=== PATIENT | female | born 1940 | race Caucasian/White ===

== ENCOUNTER 2020-06-21 09:46 | Emergency (ER) | payer MEDICARE, BC, SELFPAY ==
--- NOTE | 2020-06-21 | XR_ITS ---
EXAMINATION: AP SUPINE CHEST AND PELVIS AND LEFT HIP. CLINICAL INFORMATION: Fall COMPARISON: Chest x-ray of July 07, 2015 TECHNIQUE: AP supine chest x-ray and AP pelvis with 2 views left hip. FINDINGS: Chest: Scarring is noted about the right apex. No acute parenchymal disease, pneumothorax, or pleural effusion is appreciated. Heart normal size. No evidence of pulmonary edema. Calcific tendinitis of the left shoulder is noted. There is degenerative change with appearance of previous fracture distal right clavicle. Aortic artery calcifications present. Pelvis and left hip: AP film of the pelvis does not demonstrate any evidence of acute fracture or diastases. There is some degenerative narrowing seen involving the right hip joint axially and inferiorly. No fracture or dislocation of the left hip is identified. Prominent vascular calcifications are seen. AP and crosstable lateral views of the left hip do not demonstrate any evidence of acute fracture or dislocation. IMPRESSION: No acute parenchymal disease within the chest. No evidence of acute fracture or diastases of the pelvis. No evidence of acute fracture or dislocation of the left hip.
[2020-06-21 08:17] VITALS: BP 153/70; PULSE 56; RESP 14; TEMP 36.6; O2SAT 99; BMI 23.4
--- NOTE | 2020-06-21 08:18 | CT_ITS ---
EXAMINATION: CT HEAD AND CT CERVICAL SPINE. EXAMINATION: CT HEAD/BRAIN WITHOUT CONTRAST CLINICAL INFORMATION: Fall COMPARISON: MRI of June 28, [address] of October 20, 2005 TECHNIQUE: CT scanning from base of skull to vertex performed without IV contrast administration. DLP: 599.56 mGy-cm. FINDINGS: The ventricles, sulci, and cisterns appear age-related prominent. No abnormal extra-axial fluid collection or intracranial hemorrhage is seen. No significant mass effect or midline structure shift is evident. 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 IMPRESSION: No acute intracranial abnormality. EXAMINATION: CT OF THE CERVICAL SPINE CLINICAL INFORMATION: Fall COMPARISON: None. TECHNIQUE: Thin helical images with sagittal and coronal reformats. DOSE: DLP 264.22 mGy-cm. FINDINGS: There is no abnormal prevertebral soft tissue swelling present. Paraspinal muscle fat planes are maintained. The vertebral alignment is normal. No acute fractures identified. There is significant disc space narrowing noted at the C5-C6 and C6-C7 levels. Degenerative marginal spurring is seen at all levels most prominent at C4-C7. Posterior disc space calcification present. Facet arthropathy is seen bilaterally C2-C5 there is bilateral neural foraminal narrowing at the C5-C6 level related to spurring of the joints of [place] as well as at the C6-C7 level on the right. Pterygoid plates intact. Visualized paranasal sinuses and mastoid air cells unremarkable. Bilateral thyroid calcifications are seen as well as a 7 mm left thyroid lobe nodule. Bilateral apical pleural-parenchymal disease is seen as well as multiple right apical blebs. IMPRESSION: No acute cervical spine fracture. Cervical spondylosis as described.
--- NOTE | 2020-06-21 08:19 | ECG_ITS ---
Test Reason : FALL Blood Pressure : / mmHG Vent. Rate : 051 BPM Atrial Rate : 051 BPM P-R Int : 116 ms QRS Dur : 090 ms QT Int : 442 ms P-R-T Axes : 035 -08 007 degrees QTc Int : 407 ms Sinus bradycardia Otherwise normal ECG No previous ECGs available Referred By: Abby Orellana Electronically Signed By:ALLI NAYAK
--- NOTE | 2020-06-21 08:20 | ED_ITS ---
HPI - Fall General Chief Complaint: Fall Stated Complaint: fall Time Seen by Provider: 06/21/20 10:11 Source: patient and EMS Mode of arrival: EMS Limitations: other (cognitive impairment) History of Present Illness MD complaint: fall Onset (ago): minute(s) Fall from: standing Fall witnessed: no Place fall occurred: home Loss of consciousness: none Prolonged down time: no Symptoms prior to fall: none Context: tripped/slipped Location of injury: head and other (L hip) Severity: mild Quality: dull Associated symptoms (after fall): denies Related Data Allergies Allergy/AdvReac Type Severity Reaction Status Date / Time No Known Allergies Allergy Unverified 06/05/20 14:42 [No Known Allergies*] Review of Systems Review of Systems: Constitutional : No Fever, No Chills ENT/Mouth : No Ear Pain, No Hoarseness, No sore throat Eyes: No Eye Pain, No Swelling, No Redness, No Foreign Body Cardiovascular : No Chest Pain, No SOB Respiratory : No Cough, No Dyspnea Gastrointestinal : No Nausea, No Vomiting, No Diarrhea, No abdominal Pain Genitourinary : No Dysuria, No Hematuria Musculoskeletal : positive joint pain left hip, No Myalgias, No Joint Swelling Skin : No Skin lacerations, No rash Neuro : No Weakness, No Numbness, No Loss of Consciousness, No Dizziness, No Headache Psych : No Anxiety/Panic, No Depression Heme/Lymph: no easy bruising, no Lymphadenopathy Endocrine : No Polyuria, No Polydipsia All other systems reviewed and are negative PMFSH Past Medical History Medical History (Updated 06/21/20 @ 10:51 by Abby Orellana DO) Depressed Hallucination HTN (hypertension) Hyperlipidemia PUD (peptic ulcer disease) TIA (transient ischemic attack) Vertigo Surgical History (Updated 06/21/20 @ 08:22 by Abby Orellana DO) H/O: hysterectomy History of gastric surgery Social History Social History (Updated 06/21/20 @ 08:22 by Abby Orellana DO) Alcohol intake: unknown Smoking Status: Former smoker Smoked in Last 30 Days: No Use of substances other than those prescribed or required for medical reasons: No Advance Directives: No Advance Directives Information Provided: No Physical Exam Vital Signs and I&O and Narrative: Vital Signs and I&O: Vital Signs Temp 97.7 F 06/21/20 10:38 Pulse 53 06/21/20 10:38 Resp 17 06/21/20 10:38 BP 141/56 H 06/21/20 10:38 Pulse Ox 100 06/21/20 10:38 Intake & Output 06/20/20 06/21/20 06/21/20 18:59 06:59 18:59 Weight 64 kg Body Mass Index 23.4 Appearance: Alert. pleasantly confused. No acute distress. Eyes: Pupils equal, round and reactive to light. ENT: Pharynx normal. contusion to left eyebrow Neck: Normal inspection. Neck supple. CVS: Normal heart rate and rhythm. Pulses normal. Respiratory: No respiratory distress. Breath sounds normal. Abdomen: Soft and nontender. Skin: Skin warm and dry. Normal skin color. Normal skin turgor. Extremities: bilateral 1+ pitting edema at ankles, L hip pain mild with ROM, distal NV intact Neuro: alert oriented to person/place but not time. No motor deficit. No sensory deficit. Course Reevaluation(s) Reevaluation #1: no acute findings, stable for DC, unchanged EKG stable VS has no complaints, stable for DC, UA is contaminated doubt UTI at this time MDM - Fall MDM Narrative Medical decision making narrative: patient with likely mechanical fall son heard a noise found mom on ground - found her right away, no LOC at baseline, no AC t herapy, has contusion to left eyebrow and c/o L hip pain given her age and cognitive impairment will need CT head/neck CXR for trauma, L hip xrays, basic lab and EKG Lab Data Result diagrams: 06/21/20 08:59 06/21/20 08:59 Labs: Lab Results 06/21/20 06/21/20 06/21/20 Range/Units 08:59 08:59 08:59 WBC 5.8 (4.8-10.8) X10*3/uL RBC 3.75 L (4.20-5.50) X10*6/uL Hgb 11.2 L (12.0-16.0) g/dl Hct 35.1 L (37-47) % MCV 93.6 (80-98) fL MCH 29.9 (27.0-33.0) pg MCHC 31.9 (31.0-35.0) g/dl RDW 12.9 (11.0-16.0) % Plt Count 189 (160-400) X10*3/uL MPV 11.0 (9.4-12.3) fL Immature Gran % (Auto) 0.3 (0.0-0.4) % Neut % (Auto) 60.6 (45-73) % Lymph % (Auto) 25.9 (20-40) % [place] % (Auto) 8.7 (2-11) % Eos % (Auto) 3.8 (0-4) % Baso % (Auto) 0.7 (0-2) % Neut # (Auto) 3.5 (2.0-8.3) X10*3/uL Lymph # (Auto) 1.5 (1.2-4.9) X10*3/uL [place] # (Auto) 0.5 (0.1-1.2) X10*3/uL Eos # (Auto) 0.2 (0.0-0.4) X10*3/uL Baso # (Auto) 0.0 (0.0-0.2) X10*3/uL Abs Immat Gran (auto) 0.02 (0.00-0.03) X10*3/uL Absolute Nucleated RBC 0.000 (0.0-0.012) X10*3/uL Nucleated RBC % (auto) 0.0 (0.0-0.2) /100WBC PT 11.0 (10.8-13.0) SEC INR 0.9 (0.9-1.1) APTT 40.8 H (24.1-38.0) SEC Sodium 140 (135-145) mmol/L Potassium 4.0 (3.3-5.1) mmol/l Chloride 105 (96-108) mmol/L Carbon Dioxide 29 (22-29) mmol/L Anion Gap 10 L (12-20) BUN 19 H (9-16) mg/dL Creatinine 0.99 (0.5-1.4) mg/dL Estim Creat Clear Calc 40.0 Estimated GFR 54 Random Glucose 120 H (60-115) mg/dL Calcium 8.7 (8.4-10.2) mg/dL Magnesium 2.1 (1.6-2.6) mg/dL Total Bilirubin 0.5 (0.0-1.0) mg/dL Direct Bilirubin 0.3 (0.0-0.5) mg/dL AST 9 (5-31) U/L ALT 7 (0-31) U/L Alkaline Phosphatase 62 (39-117) U/L Troponin I High Sens (<3.5-17.0) ng/L Total Protein 6.1 L (6.5-8.0) g/dL Albumin 3.9 (3.5-5.0) g/dL Urine Color Urine Appearance Urine pH (5.0-8.0) Ur Specific [place] (1.005-1.025) Urine Protein (NEG-TRACE) MG/DL Urine Glucose (UA) (NEG) MG/DL Urine Ketones (NEG) MG/DL Urine Blood (NEG) Urine Nitrite (NEG) Ur Leukocyte Esterase (NEG) Urine RBC (0) /HPF Urine WBC (0-4) /HPF Ur Squamous Epith Cells /LPF Urine Bacteria /LPF Urine Mucus /LPF 06/21/20 06/21/20 Range/Units 08:59 09:47 WBC (4.8-10.8) X10*3/uL RBC (4.20-5.50) X10*6/uL Hgb (12.0-16.0) g/dl Hct (37-47) % MCV (80-98) fL MCH (27.0-33.0) pg MCHC (31.0-35.0) g/dl RDW (11.0-16.0) % Plt Count (160-400) X10*3/uL MPV (9.4-12.3) fL Immature Gran % (Auto) (0.0-0.4) % Neut % (Auto) (45-73) % Lymph % (Auto) (20-40) % [place] % (Auto) (2-11) % Eos % (Auto) (0-4) % Baso % (Auto) (0-2) % Neut # (Auto) (2.0-8.3) X10*3/uL Lymph # (Auto) (1.2-4.9) X10*3/uL [place] # (Auto) (0.1-1.2) X10*3/uL Eos # (Auto) (0.0-0.4) X10*3/uL Baso # (Auto) (0.0-0.2) X10*3/uL Abs Immat Gran (auto) (0.00-0.03) X10*3/uL Absolute Nucleated RBC (0.0-0.012) X10*3/uL Nucleated RBC % (auto) (0.0-0.2) /100WBC PT (10.8-13.0) SEC INR (0.9-1.1) APTT (24.1-38.0) SEC Sodium (135-145) mmol/L Potassium (3.3-5.1) mmol/l Chloride (96-108) mmol/L Carbon Dioxide (22-29) mmol/L Anion Gap (12-20) BUN (9-16) mg/dL Creatinine (0.5-1.4) mg/dL Estim Creat Clear Calc Estimated GFR Random Glucose (60-115) mg/dL Calcium (8.4-10.2) mg/dL Magnesium (1.6-2.6) mg/dL Total Bilirubin (0.0-1.0) mg/dL Direct Bilirubin (0.0-0.5) mg/dL AST (5-31) U/L ALT (0-31) U/L Alkaline Phosphatase (39-117) U/L Troponin I High Sens 4.1 (<3.5-17.0) ng/L Total Protein (6.5-8.0) g/dL Albumin (3.5-5.0) g/dL Urine Color YELLOW Urine Appearance HAZY Urine pH 5.5 (5.0-8.0) Ur Specific [place] 1.025 (1.005-1.025) Urine Protein NEG (NEG-TRACE) MG/DL Urine Glucose (UA) NEG (NEG) MG/DL Urine Ketones NEG (NEG) MG/DL Urine Blood NEG (NEG) Urine Nitrite NEG (NEG) Ur Leukocyte Esterase 1+ H (NEG) Urine RBC 0 (0) /HPF Urine WBC 15-29 H (0-4) /HPF Ur Squamous Epith Cells 3+ /LPF Urine Bacteria 2+ /LPF Urine Mucus 3+ /LPF ECG Data ECG interpretation date: 06/21/20 ECG interpretation time: 08:27 Interpretation: Rate:51 Rhythm: sinus bradycardia [place]: left Normal P waves. Normal MARYELLEN. Normal QRS complex. ST T wave : inverted V1 V3 qTC: normal prior studies: unchanged 2014 The study has been interpreted contemporaneously by me. . Discharge Plan Discharge Clinical Impression: Fall
--- NOTE | 2020-06-21 08:22 | PC.NURSE ---
pt daughter irasema called [phone]
[2020-06-21 09:06] LABS: MANUAL DIFF FLAG NO
[2020-06-21 09:14] LABS: INTERNATIONAL NORM RATIO 0.9 (0.9-1.1)
[2020-06-21 09:16] LABS: Partial Thromboplastin Time 40.8 SEC (24.1-38.0)
[2020-06-21 09:25] LABS: Basophils Percent Auto 0.7 % (0-2); Eosinophils Absolute Auto 0.2 X10*3/uL (0.0-0.4); Eosinophils Percent Auto 3.8 % (0-4); Hematocrit 35.1 % (37-47); Hemoglobin 11.2 g/dl (12.0-16.0); Imm Gran Abs Auto 0.02 X10*3/uL (0.00-0.03); Imm Gran Pct Auto 0.3 % (0.0-0.4); Lymphocytes Absolute Auto 1.5 X10*3/uL (1.2-4.9); Lymphocytes Percent Auto 25.9 % (20-40); Mean Corpuscular HGB Conc 31.9 g/dl (31.0-35.0); Mean Corpuscular Hemoglobin 29.9 pg (27.0-33.0); Mean Corpuscular Volume 93.6 fL (80-98); Monocytes Absolute Auto 0.5 X10*3/uL (0.1-1.2); Monocytes Percent Auto 8.7 % (2-11); Neutrophils Absolute Auto 3.5 X10*3/uL (2.0-8.3); Neutrophils Percent Auto 60.6 % (45-73); Platelet Count 189 X10*3/uL (160-400); Red Blood Count 3.75 X10*6/uL (4.20-5.50); Red Cell Distribution Width 12.9 % (11.0-16.0); White Blood Count 5.8 X10*3/uL (4.8-10.8)
[2020-06-21 09:39] LABS: Albumin Level 3.9 g/dL (3.5-5.0); Alkaline Phosphatase 62 U/L (39-117); Anion Gap 10 (12-20); Aspartate Amino Transferase 9 U/L (5-31); Bilirubin Direct 0.3 mg/dL (0.0-0.5); Bilirubin Total 0.5 mg/dL (0.0-1.0); Blood Urea Nitrogen 19 mg/dL (9-16); Calcium 8.7 mg/dL (8.4-10.2); Carbon Dioxide 29 mmol/L (22-29); Chloride 105 mmol/L (96-108); Estimated Glomerular Filt Rate 54; Glucose Random 120 mg/dL (60-115); Magnesium 2.1 mg/dL (1.6-2.6); Sodium 140 mmol/L (135-145); Total Protein 6.1 g/dL (6.5-8.0)
[2020-06-21 09:42] LABS: Troponin-I High Sensitivity 4.1 ng/L (<3.5-17.0)
[2020-06-21 09:51] LABS: Alanine Aminotransferase 7 U/L (0-31)
[2020-06-21 10:27] LABS: Glucose Urine UA NEG (NEG); Leukocyte Esterase Urine 1+ (NEG); Nitrite Urine NEG (NEG); PH 5.5 (5.0-8.0); Specific Gravity - Urine 1.025 (1.005-1.025); Urine Blood NEG (NEG); Urine Ketones NEG (NEG); Urine Protein NEG (NEG-TRACE)
[2020-06-21 10:29] LABS: Appearance Urine HAZY; Color Urine YELLOW
[2020-06-21 10:38] VITALS: BP 141/56; PULSE 53; RESP 17; TEMP 36.5; O2SAT 100
[2020-06-21 10:38] LABS: Bacteria Urine 2+ /LPF; RBC Urine 0 /HPF (0); Squamous Epithelial Cell Urine 3+ /LPF
[2020-06-21 10:39] LABS: Mucus Urine 3+ /LPF
== END 2020-06-21 11:53 | disposition home or self-care (01) ==
PROVIDERS: Emergency Provider Emergency Medicine; PCP Internal Medicine
DX: S00.12XA Contusion of left eyelid and periocular area, initial encounter (principal); W19.XXXA Unspecified fall, initial encounter; M25.552 Pain in left hip; I10 Essential (primary) hypertension; Y93.9 Activity, unspecified; Y92.013 Bedroom of single-family (private) house as the place of occurrence of the external cause; Y99.9 Unspecified external cause status; Z86.73 Personal history of transient ischemic attack (TIA), and cerebral infarction without residual deficits
CPT/HCPCS: 36415; 70450; 71045; 72125; 73502; 80048; 80076; 81001; 83735; 84484; 85025; 85610; 85730; 87086; 93005; 93010; 99284